=== PATIENT | male | born 1945 | race Two or more races ===

== ENCOUNTER 2016-10-31 11:26 | Outpatient (CLI) | payer MEDICARE, MEDICAID | END 2016-10-31 23:59 | disposition home or self-care (01) | LOC: US 11:26 | DX: N18.9 Chronic kidney disease, unspecified (principal); R31.9 Hematuria, unspecified; N40.1 Benign prostatic hyperplasia with lower urinary tract symptoms; N28.1 Cyst of kidney, acquired | CPT/HCPCS: 76770-TC ==